=== PATIENT | female | born 1950 | race Caucasian/White ===

== ENCOUNTER → 2017-09-07 | Outpatient (CLI) | payer MEDICARE | END | disposition home or self-care (01) | LOC: CFH 10:35 | PROVIDERS: ATTEND Internal Medicine Hematology & Oncology | DX: Z12.31 Encounter for screening mammogram for malignant neoplasm of breast (principal); Z85.3 Personal history of malignant neoplasm of breast; Z92.3 Personal history of irradiation; Z90.11 Acquired absence of right breast and nipple | CPT/HCPCS: G0202 ==

== ENCOUNTER → 2018-06-23 | Outpatient (CLI) | payer MEDICARE | END | disposition home or self-care (01) | LOC: CFH 11:41 | PROVIDERS: ATTEND Nurse Practitioner Family | DX: Z13.820 Encounter for screening for osteoporosis (principal); M85.89 Other specified disorders of bone density and structure, multiple sites; N95.1 Menopausal and female climacteric states | CPT/HCPCS: 77080 ==

== ENCOUNTER → 2018-09-13 | Outpatient (CLI) | payer MEDICARE | END | disposition home or self-care (01) | LOC: CFH 11:20 | PROVIDERS: ATTEND Nurse Practitioner Family | DX: Z12.31 Encounter for screening mammogram for malignant neoplasm of breast (principal); C50.911 Malignant neoplasm of unspecified site of right female breast; Z85.3 Personal history of malignant neoplasm of breast | CPT/HCPCS: 77063; 77067 ==

== ENCOUNTER 2018-12-17 14:36 | Emergency (ER) | payer MEDICARE ==
[~2018-12-17] VITALS: Ht 165.1 cm; Wt 118.8 kg
--- NOTE | 2018-12-17 14:52 | NUR ---
LATE NOTE ENTRY FOR 1452: First contact with pt. Pt brought in by EMS with c/o syncopal episode with shortness of breath. Pt on 4L oxygen via nasal cannula and spo2% is 96%. Per EMS, Pt had been sitting for one hour and stood up quickly and passed out. Per EMS, upon arrival pt was pale, cool, and diaphoretic with HR at 50, bp at 70/50 and SPO2 at 83% on room air. Pt recieved PIV NS fluids in an 18 G PIV in Left AC placed by EMS prior to arrival. After recieving fluids per EMS, pt's blood pressure went up to 137/72, and HR was 57. \ Pt connected to all monitors. Pt has 4L oxygen via nasal cannula and SPO2 % remains between 90-96%. NADN. All safety measures in place. Pt's spouse at bedside. Provided warm blanket for comfort measures. Call light within reach, all personal belongings within reach.
[2018-12-17] MEDS ORDERED: AMLO1CAP8 PO (15:09)
[2018-12-17] MEDS ORDERED: FLUT1BLS INH (15:09)
[2018-12-17] MEDS ORDERED: VALS1TAB30 PO (15:09)
[2018-12-17 15:11] LABS: BASOPHILS # (AUTO) 0.01 x10^3/uL (0-0.1); BASOPHILS % (AUTO) 0 % (0-1); EOSINOPHILS % (AUTO) 0 % (1-7); LYMPHOCYTES # (AUTO) 0.86 x10^3/uL (1-3.4); LYMPHOCYTES % (AUTO) 11 % (22-44); MD NO; MEAN CORPUSCULAR HEMOGLOBIN 30.3 pg (27.0-34.8); MEAN CORPUSCULAR HGB CONC 33.1 g/dL (32.4-35.8); MEAN CORPUSCULAR VOLUME 91.5 fL (80-100); MEAN PLATELET VOLUME 9.3 fL (7.4-10.4); MONOCYTES # (AUTO) 1.03 x10^3/uL (0.2-0.8); MONOCYTES % (AUTO) 14 % (2-9); NEUTROPHILS # (AUTO) 5.74 x10^3/uL (1.8-6.8); NEUTROPHILS % (AUTO) 75 % (42-75); PLATELET COUNT 187 x10^3/uL (130-400); RED BLOOD COUNT 4.57 x10^6/uL (3.82-5.3); RED CELL DISTRIBUTION WIDTH 15.9 % (9.6-15.2)
[2018-12-17 15:23] LABS: ALBUMIN 3.5 g/dL (3.4-5.0); ANION GAP 8 mmol/L (5-15); CALCIUM 9.4 mg/dL (8.5-10.1); CHLORIDE 109 mmol/L (98-107); CREATININE 1.09 mg/dL (0.55-1.02)
[2018-12-17] MEDS ORDERED: LORA1TAB46 PO (15:24)
[2018-12-17] MEDS ORDERED: DENO60DI IJ (15:24)
[2018-12-17] MEDS ORDERED: Ventolin INH (15:24)
[2018-12-17] MEDS ORDERED: CHOL500051 PO (15:24)
[2018-12-17] MEDS ORDERED: MOME17SP NAS (15:24)
[2018-12-17] MEDS ORDERED: NAPR220C2 PO (15:24)
[2018-12-17 15:26] LABS: TROPONIN I < 0.015 ng/mL (0.000-0.045)
[2018-12-17 15:49] VITALS: BP 134/65
--- NOTE | 2018-12-17 15:51 | NUR ---
Pt ambulates to restroom from ED room with steady gait and balance and back to room. Pt connected to all monitors. Call light within reach. Pt's spouse at bedside.
[2018-12-17] MEDS ORDERED: OMNIPAQUE 350 MG/ML, 100ML BOTTLE ONE (16:32)
--- NOTE | 2018-12-17 17:59 | NUR ---
Pt waiting for home oxygen to be delivered prior to discharge from ED.
--- NOTE | 2018-12-17 19:01 | NUR ---
Provided bedside report to KRISTY Pierre. All questions answered.
--- NOTE | 2018-12-17 19:03 | NUR ---
CALLED SW ABOUT HOME O2, WILL NOTIFY THIS RN WHEN SHE KNOWS OF AN ETA
--- NOTE | 2018-12-17 20:04 | NUR ---
pt is still waiting for oxygen delivery no other c/o
== END 2018-12-17 21:08 | disposition home or self-care (01) ==
LOC: ED 16:26
DX: J45.40 Moderate persistent asthma, uncomplicated (principal); R09.02 Hypoxemia; R55 Syncope and collapse
CPT/HCPCS: 36415; 71275; 80048; 82040; 84484; 85025; 93005; 99284; Q9967

== ENCOUNTER → 2019-03-14 | Outpatient (CLI) | payer MEDICARE ==
[~2019-03-14] MED LIST: AMLO1CAP8 PO; CHOL500051 PO; DENO60DI IJ; FLUT1BLS INH; LORA1TAB46 PO; MOME17SP NAS; NAPR220C2 PO; VALS1TAB30 PO; Ventolin INH
== END | disposition home or self-care (01) ==
LOC: CFH 09:01
PROVIDERS: ATTEND Internal Medicine
DX: J47.9 Bronchiectasis, uncomplicated (principal); I25.10 Atherosclerotic heart disease of native coronary artery without angina pectoris; M19.012 Primary osteoarthritis, left shoulder; M19.011 Primary osteoarthritis, right shoulder; M47.9 Spondylosis, unspecified; Z88.8 Allergy status to other drugs, medicaments and biological substances; Z98.890 Other specified postprocedural states
CPT/HCPCS: 71250

== ENCOUNTER 2019-12-06 05:51 | Day surgery (SDC) | payer MEDICARE ==
[~2019-12-06] VITALS: Ht 162.6 cm; Wt 107.0 kg
[~2019-12-06 05:51] MED LIST changes: +ACET-2065 PO; +ALBU18HF INH; -AMLO1CAP8 PO; +AMLO1CAP9 PO; +AMLO5TAB4 PO; +ANTIHISTAMINE PO; +ASPI-496 PO
[2019-12-06 06:16] VITALS: BP 147/79
[2019-12-06] MEDS ORDERED: LACTATED RINGERS 1,000 ML IV SCH (06:21)
[2019-12-06] MEDS ORDERED: PROPOFOL 10 MG/ML, 50ML ONE (07:50)
== END 2019-12-06 09:35 | disposition home or self-care (01) ==
LOC: OUT 05:51
PROVIDERS: ATTEND Internal Medicine Gastroenterology
DX: Z12.11 Encounter for screening for malignant neoplasm of colon (principal); D12.3 Benign neoplasm of transverse colon; D12.2 Benign neoplasm of ascending colon; D12.5 Benign neoplasm of sigmoid colon; K57.30 Diverticulosis of large intestine without perforation or abscess without bleeding; K63.3 Ulcer of intestine; K64.4 Residual hemorrhoidal skin tags; K64.0 First degree hemorrhoids; K52.89 Other specified noninfective gastroenteritis and colitis; E66.01 Morbid (severe) obesity due to excess calories; J44.9 Chronic obstructive pulmonary disease, unspecified; I10 Essential (primary) hypertension; Z79.82 Long term (current) use of aspirin; Z79.899 Other long term (current) drug therapy; Z86.010 Personal history of colon polyps; Z88.8 Allergy status to other drugs, medicaments and biological substances; Z99.81 Dependence on supplemental oxygen; Z80.0 Family history of malignant neoplasm of digestive organs
CPT/HCPCS: 45380; 88305; 93005; J2704; J7120

== ENCOUNTER 2020-01-23 12:23 | Outpatient (CLI) | payer MEDICARE | END 2020-01-23 23:59 | disposition home or self-care (01) | LOC: CFH 12:23 | PROVIDERS: ATTEND Family Medicine | DX: M96.843 Postprocedural seroma of a musculoskeletal structure following other procedure (principal); R92.1 Mammographic calcification found on diagnostic imaging of breast | CPT/HCPCS: 77066; G0279 ==

== ENCOUNTER → 2020-05-21 | Outpatient (CLI) | payer MEDICARE | END | disposition home or self-care (01) | LOC: CVU 13:25 | PROVIDERS: ATTEND Internal Medicine Cardiovascular Disease | DX: I08.0 Rheumatic disorders of both mitral and aortic valves (principal); I77.819 Aortic ectasia, unspecified site; I25.10 Atherosclerotic heart disease of native coronary artery without angina pectoris; I10 Essential (primary) hypertension | CPT/HCPCS: 93306 ==

== ENCOUNTER 2020-06-18 08:40 | Outpatient (CLI) | payer MEDICARE ==
[2020-06-18 09:13] LABS: FIO2 ROOM AIR %
[2020-06-18 09:21] LABS: CARBOXYHEMOGLOBIN 1.2 % (0.0-1.5); METHEMOGLOBIN 0.3 % (0.0-1.4)
[2020-06-18 09:22] LABS: BASOPHILS # (AUTO) 0.02 x10^3/uL (0-0.1); BASOPHILS % (AUTO) 0 % (0-1); EOSINOPHILS # (AUTO) 0.01 x10^3/uL (0-0.4); EOSINOPHILS % (AUTO) 0 % (1-7); LYMPHOCYTES # (AUTO) 1.47 x10^3/uL (1-3.4); LYMPHOCYTES % (AUTO) 19 % (22-44); MD NO; MEAN CORPUSCULAR HEMOGLOBIN 31.7 pg (27.0-34.8); MEAN CORPUSCULAR HGB CONC 32.7 g/dL (32.4-35.8); MEAN PLATELET VOLUME 8.1 fL (7.4-10.4); MONOCYTES # (AUTO) 0.85 x10^3/uL (0.2-0.8); MONOCYTES % (AUTO) 11 % (2-9); NEUTROPHILS # (AUTO) 5.21 x10^3/uL (1.8-6.8); NEUTROPHILS % (AUTO) 69 % (42-75); PLATELET COUNT 242 x10^3/uL (130-400); RED BLOOD COUNT 4.46 x10^6/uL (3.82-5.3); RED CELL DISTRIBUTION WIDTH 13.6 % (9.6-15.2)
== END 2020-06-18 23:59 | disposition home or self-care (01) ==
LOC: LAB 08:40
PROVIDERS: ATTEND Internal Medicine
DX: R09.02 Hypoxemia (principal)
CPT/HCPCS: 36600; 82375; 82803; 83050; 85025

== ENCOUNTER → 2020-08-13 | Outpatient (CLI) | payer MEDICARE | END | disposition home or self-care (01) | LOC: CARD 12:18 | PROVIDERS: ATTEND Internal Medicine Pulmonary Disease | DX: R06.09 Other forms of dyspnea (principal) | CPT/HCPCS: 94060; 94618; 94726; 94729 ==

== ENCOUNTER → 2020-09-11 | Outpatient (CLI) | payer MEDICARE | END | disposition home or self-care (01) | LOC: CVU 12:27 | PROVIDERS: ATTEND Internal Medicine Pulmonary Disease | DX: I08.8 Other rheumatic multiple valve diseases (principal); I11.9 Hypertensive heart disease without heart failure; R06.09 Other forms of dyspnea | CPT/HCPCS: 93306; 93356 ==

== ENCOUNTER → 2020-12-05 | Outpatient (CLI) | payer MEDICARE | END | disposition home or self-care (01) | LOC: CFH 10:46 | PROVIDERS: ATTEND Student in an Organized Health Care Education/Training Program | DX: J92.9 Pleural plaque without asbestos (principal); J47.9 Bronchiectasis, uncomplicated; R09.02 Hypoxemia; J98.4 Other disorders of lung | CPT/HCPCS: 71250 ==

== ENCOUNTER 2021-03-20 13:52 | Emergency (ER) | payer MEDICARE ==
[~2021-03-20] VITALS: Ht 160 cm; Wt 107.3 kg
--- NOTE | 2021-03-20 14:41 | NUR ---
PEN AND PENCIL REPAIRER: PT TO ROOM FROM LOBBY.
[2021-03-20 14:58] LABS: BASOPHILS % (AUTO) 1 % (0-1); EOSINOPHILS % (AUTO) 0 % (1-7); LYMPHOCYTES % (AUTO) 10 % (22-44); MEAN CORPUSCULAR HEMOGLOBIN 32.1 pg (27.0-34.8); MEAN CORPUSCULAR HGB CONC 34.2 g/dL (32.4-35.8); MEAN PLATELET VOLUME 8.8 fL (7.4-10.4); MONOCYTES % (AUTO) 8 % (2-9); NEUTROPHILS % (AUTO) 82 % (42-75); PLATELET COUNT 232 x10^3/uL (130-400); RED BLOOD COUNT 4.77 x10^6/uL (3.82-5.3); RED CELL DISTRIBUTION WIDTH 14.8 % (9.6-15.2)
--- NOTE | 2021-03-20 15:04 | NUR ---
PT PRESENTS TO ED WITH C/O RIGHT LOWER ABD PAIN ONSET 2 DAYS AGO, DENIES N/V/D. DENIES RECENT TRAVEL/SICK CONTACTS. PT STATES LBM 2 DAYS AGO. PT A&O, RESPS EVEN AND UNLABORED. PT INSTRUCTED TO PROVIDE CLEAN CATCH UA, SUPPLIES PROVIDED. PT UP TO BATHROOOM AT THIS TIME WITH STEADY GAIT.
[2021-03-20 15:06] LABS: ALANINE AMINOTRANSFERASE 23 U/L (12-78); ALBUMIN 3.8 g/dL (3.4-5.0); ANION GAP 6 mmol/L (5-15); CALCIUM 9.3 mg/dL (8.5-10.1); CHLORIDE 108 mmol/L (98-107); CREATININE 1.01 mg/dL (0.55-1.02)
[2021-03-20 15:09] LABS: ALKALINE PHOSPHATASE 81 U/L (45-117); BILIRUBIN,TOTAL 0.8 mg/dL (0.2-1.0); TOTAL PROTEIN 7.9 g/dL (6.4-8.2)
--- NOTE | 2021-03-20 15:14 | NUR ---
URINE SENT TO LAB, PT REATTACHED TO BP AND SPO2 MONITORS. BP ON LEFT ARM D/T HX RIGHT MASTECTOMY. PT C/O 01/29 RIGHT LOWER ABD PAIN, TOLERABLE. UPON RETURN FROM BATHROOM PT'S SPO2 79% ON ROOM AIR, PT MILDY DYSPNEIC. PT STATES "OH THAT'S NORMAL FOR ME, IT WILL COME UP AGAIN QUICK." HX PULMONARY FIBROSIS. PT STATES BASELINE OXYGEN LEVEL IS 88-89%. SPO2 91% ON ROOM AIR WITHIN ONE MIN OF RETURNING TO REST.
[2021-03-20 15:18] LABS: MD SCAN
[2021-03-20 15:36] LABS: MICROSCOPIC AUTO
[2021-03-20] MEDS ORDERED: SODIUM CHLORIDE FLUSH 10ML SYR IVF ONE (16:00)
[2021-03-20] MEDS ORDERED: SODIUM CHLORIDE 0.9% 1,000 ML IV ONE (16:00)
[2021-03-20] MEDS ORDERED: OMNIPAQUE 350 MG/ML, 100ML BOTTLE ONE (16:29)
--- NOTE | 2021-03-20 16:29 | NUR ---
BREAK RN: IV PLACED. PT CURRENTLY GONE TO CT.
--- NOTE | 2021-03-20 16:45 | NUR ---
REPORT TAKEN FROM DHARMESH RN'S JAMAR.
--- NOTE | 2021-03-20 17:00 | NUR ---
PT UPDATED WITH RESULTS AND POC BY MD, PT AGREEABLE TO IV ABX AND DC. PT A&O, REPSS EVEN AND UNLABORED, VIVIAN.
[2021-03-20] MEDS ORDERED: CEFTRIAXONE 1,000 MG in DEXTROSE 5% 50 ML IVPB ONE (17:30)
--- NOTE | 2021-03-20 17:37 | NUR ---
PER BLAYNE HOOD, PT DOES NOT NEED BLOOD CULTURES PRIOR TO ROCEPHIN ADMIN. ROCEPHIN GTT AND NS GTT INITIATED PER EMAR, TOLERATING WELL. BP AND SP2O MONITORS IN PLACE. SPO2 89-92% ON ROOM AIR, PT REFUSING OXYGEN STATING THIS IS HER BASELINE OXYGEN SAT. PT A&O, RESPS EVEN AND UNLABORED, NO COMPLAINT AT THIS TIME.
--- NOTE | 2021-03-20 18:00 | NUR ---
rocephin infusion complete, pt tolerated well. pt a&o, resps even and unlabored, nadn. vss. pt to be discharged.
[2021-03-20 18:46] VITALS: BP 110/64
--- NOTE | 2021-03-20 19:02 | NUR ---
DISCHARGE INSTRUCTIONS REVIEWED, PT EDUCATED ON PRESCRIPTION, FOLLOW-UP, AND RETURN CRITERIA. PT VERBALIZED UNDERSTANDING. IV DC'D WITH TIPINTACT. PT AMBULATORY TO DISCHARGE DESK WITH STEADY GAIT, ACCOMPANIED BY .
== END 2021-03-20 19:04 | disposition home or self-care (01) ==
LOC: ED 14:58
DX: K57.30 Diverticulosis of large intestine without perforation or abscess without bleeding (principal); I10 Essential (primary) hypertension; J45.909 Unspecified asthma, uncomplicated
CPT/HCPCS: 36415; 74177; 80053; 81001; 85025; 87086; 96365; 99285; J0696; J7030; Q9967

== ENCOUNTER 2021-05-21 12:43 | Outpatient (CLI) | payer MEDICARE ==
[~2021-05-21 12:43] MED LIST changes: +REGADENOSON 0.4 MG/5 ML SYRINGE ONE
== END 2021-05-22 23:59 | disposition home or self-care (01) ==
LOC: CFH 12:43
PROVIDERS: ATTEND Internal Medicine Cardiovascular Disease
DX: I25.10 Atherosclerotic heart disease of native coronary artery without angina pectoris (principal)
CPT/HCPCS: 78452; 93017; A9502; J2785

== ENCOUNTER → 2021-06-11 | Outpatient (CLI) | payer MEDICARE ==
[~2021-06-11] MED LIST changes: -REGADENOSON 0.4 MG/5 ML SYRINGE ONE
== END | disposition home or self-care (01) ==
LOC: CFH 09:56
PROVIDERS: ATTEND Student in an Organized Health Care Education/Training Program
DX: Z12.31 Encounter for screening mammogram for malignant neoplasm of breast (principal); M85.88 Other specified disorders of bone density and structure, other site
CPT/HCPCS: 77063; 77067; 77080